=== PATIENT | male | born 1985 | race Caucasian/White ===

== ENCOUNTER 2017-05-03 09:20 | Emergency (ER) | payer OTHER ==
[2017-05-03 09:27] VITALS: BP 123/83
--- NOTE | 2017-05-03 10:11 | ERNOTE ---
Upper Extremity HPI - Narrative Date of Service: 05/03/17 - General Extremities Pain Location: elbow: right Time Seen by Provider: 05/03/17 09:29 Source: patient Exam Limitations: no limitations - Immun/Allergies/Home Medications Immunizations: IMMUNIZATION HX Immunizations Up to Date Yes History of Influenza Vaccine No Hx Pneumococcal Vaccination No Allergies/Adverse Reactions: Allergies Allergy/AdvReac Type Severity Reaction Status Date / Time No Known Allergies Allergy Verified 12/04/15 20:59 Home Medications: HOME MEDICATIONS oxyCODONE HCL/ACETAMINOPHEN [Percocet 5 MG/325 MG] 1 tab PO Q4H PRN #30 tablet 12/01/15 [Last Taken Unknown] Diltiazem HCl [Diltiazem 12Hr ER] 60 mg PO BID 12/04/15 [Last Taken Unknown] Gabapentin [Neurontin] 900 mg PO TID 12/04/15 [Last Taken Unknown] oxyCODONE HCL/ACETAMINOPHEN [Percocet 5 MG/325 MG] 2 tab PO Q4H PRN #30 tablet 12/05/15 [Last Taken Unknown] - History of Present Illness Narrative: Patient presents to the ED for bleeding from right elbow surgical site. He had Surgery by Dr Hernandez on the . Did not wear his sling to bed last night and woke up with bleeding from the surgical site this am. No new N/T/W. No fever. Blood, no pus drainage. No other complaints. No other injuries. Bleeding controlled with pressure. Occurred: just prior to arrival Location of Incident: home Method of Injury: Reports: unknown Modifying Factors - (Improves): Reports: other - pressure Modifying Factors - (Worsens): Reports: other - nothing Associated Symptoms: Denies: tingling, weakness Other Injuries: Reports: none Prior Treament: Reports: recently seen Review of Systems - Review of Systems Constitutional: Absent: fever Respiratory: Present: no symptoms reported Cardiology: Present: no symptoms reported Gastrointestinal/Abdominal: Present: no symptoms reported - Patient's Past Medical History Patient History - Medical:  Patient History - Cardiac/Respiratory: Arrhythmias, Other Patient History - Cancer: No Hx of Cancer Patient History - Surgical Procedures: Back Surgery, Cholecystectomy, T & A Patient History - Other: None - Family History Grandfather-Paternal Family History - Cardiac/Respiratory: CVA/Stroke - Social History Living Situations: home Abuse History: No History of abuse Psych History: No pertinent hx Smoking Status: Current every day smoker Have you smoked in the past 12 months: Yes Do you dip or chew tobacco: No Alcohol Use: none Drug Use: none - Immunizations Immunizations Up to Date: Yes Hx Pneumococcal Vaccination: No History of Influenza Vaccine: No Physical Exam - Physical Exam General Appearance: Present: alert, no apparent distress Head Exam: Present: normal inspection Eye Exam: Normal inspection: bilateral Ears, Nose, Throat: Present: normal ENT inspection Neck: Present: normal inspection Respiratory: Present: no respiratory distress, lungs clear Cardiovascular/Chest: Present: regular rate, rhythm, normal peripheral pulses, other - strong radial pulses Gastrointestinal/Abdominal: Present: normal bowel sounds, nontender, soft Back Exam: Present: normal range of motion Extremity Exam: Present: other - Right elbow surgical site has controlled bleeding proximal aspect of wound. Steri strips still in place minus one. Wound appers to have clot proximally, no gaping. No evidence of cellulitis. No neuro vascular decifits noted acutely Neurological Exam: Present: alert, normal mood/affect, no motor/sensory deficits , other - no nacute neuro deficits Skin Exam: Present: normal color, warm/dry, other - no cellulitis ED Progress - Vital Signs Patient's Vital Signs:: I have reviewed the patient's vital signs. Vital Signs: Vital Signs 05/03/17 09:24 Temperature 36 C L Pulse Rate 92 Respiratory 14 Rate Blood Pressure 123/83 O2 Sat by Pulse 100 Oximetry - Progress/Reassessment Chief Complaint: Upper Extremity Injury/Problem Progress Note-Subjective: 05/03/17 10:[address] Hernandez via OR buttermaker helper. He recommends bandaging and office f/u tomorrow. Pt agreeable to this. I discussed warnign signs and reasons to return as well as the need for close f/u. Departure Clinical Impression: Bleeding - Departure Disposition: Home self-care Condition: Stable Additional Instructions: Bandage. Use sling for now. Dr Hernandez wants to see you in the office tomorrow, call for an appointment time. Return here for fever, signs of infection, uncontrolled bleeding, numbness, tingling, weakness or if your condition worsens or changes in any way. Referrals: Audelia Caraballo, ELISA [Primary Care Provider] -
== END 2017-05-03 10:21 | disposition home or self-care (01) ==
LOC: ER 09:20
DX: M96.831 Postprocedural hemorrhage of a musculoskeletal structure following other procedure (principal); F17.200 Nicotine dependence, unspecified, uncomplicated